=== PATIENT | male | born 2000 | race Caucasian/White ===

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

== ENCOUNTER 2021-05-17 09:07 | Observation (INO) | payer BC, OTHER ==
[2021-05-17] MEDS ORDERED: SODIUM CHLORIDE 0.9% 500 ML 500 ML IV STA (10:26)
[2021-05-17 10:54] LABS: Basophils % (A) 1 %; Eosinophils # (A) 0.2 k/uL (0-0.7); Eosinophils % (A) 5 %; HCT 43.4 % (39.0-53.0); HGB 15.3 gm/dL (13.0-17.5); Lymphocytes # (A) 1.3 k/uL (1.0-4.8); Lymphocytes % (A) 29 %; MCH 31.2 pg (25.0-35.0); MCHC 35.3 g/dL (31.0-37.0); MCV 88.5 fL (80.0-100.0); Mean Platelet Volume 8.1; Monocytes # (A) 0.7 k/uL (0-1.0); Monocytes % (A) 16 %; Neutrophils # (A) 2.1 k/uL (1.3-7.7); Neutrophils % (A) 47 %; Platelet Count 257 k/uL (150-450); RBC 4.91 m/uL (4.30-5.90); RDW 11.8 % (11.5-15.5); WBC 4.6 k/uL (4.0-11.0)
--- NOTE | 2021-05-17 11:03 | ED ---
Abdominal Pain HPI - General Chief Complaint: Abdominal Pain Stated Complaint: possible appendicitis Time Seen by Provider: 05/17/21 10:30 Source: patient, family, RN notes reviewed Mode of arrival: ambulatory Limitations: no limitations - History of Present Illness Initial Comments: Patient is a 21-year-old male presenting to the emergency Department with complaints of right lower quadrant pain worsening over the past 2 days. Patient does have history of Crohn's disease however this does not feel like his normal flareups. He states the pain started mostly in the middle of his abdomen but now has relocated to the right lower quadrant. His pain was a 10/10 when it first started 2 days ago, the pain has seemed to improve very slightly over the past 2 days, he did have some nausea and vomiting, and episode of diarrhea as well. Patient had pain during the car rides over the last 24 hours, he also has pain when he lifts up his right leg. They have concerns for appendicitis. He denies history of abdominal surgeries, no dysuria. Currently his pain is a 4/10. He He's had no fevers and is aware of. No chest pain or shortness of breath, no signs of congestion. There are no further complaints today. His vital signs are stable upon arrival. - Related Data Home Medications Medication Instructions Recorded Confirmed inFLIXimab [Remicade] 300 mg IVPB Q56D 03/02/18 05/17/21 Allergies Allergy/AdvReac Type Severity Reaction Status Date / Time No Known Allergies Allergy Verified 05/17/21 09:38 Review of Systems ROS Statement: Those systems with pertinent positive or pertinent negative responses have been documented in the HPI. ROS Other: All systems not noted in ROS Statement are negative. Past Medical History Past Medical History: Seizure Disorder Additional Past Medical History / Comment(s): chrons, pt had epilepsy as child History of Any Multi-Drug Resistant Organisms: None Reported Past Surgical History: No Surgical Hx Reported Additional Past Surgical History / Comment(s): colonoscopy, nasal, EGD with biopsy Past Psychological History: No Psychological Hx Reported Smoking Status: Never smoker Past Alcohol Use History: None Reported Past Drug Use History: None Reported General Exam - General Exam Comments Initial Comments: GENERAL: Patient is well-developed and well-nourished. Patient is nontoxic and in no acute distress. HEAD: Atraumatic, normocephalic. EYES: Pupils equal round and reactive to light, extraocular movements intact, sclera anicteric, conjunctiva are normal. Eyelids were unremarkable. ENT: Oropharynx clear without exudates. Moist mucous membranes. NECK: Normal range of motion, supple without lymphadenopathy or JVD. LUNGS: Unlabored respirations. Breath sounds clear to auscultation bilaterally and equal. No wheezes rales or rhonchi. HEART: Regular rate and rhythm without murmurs, rubs or gallops. ABDOMEN: Soft, tender to palpation of the right lower quadrant with positive guarding and rebound. normoactive bowel sounds. No masses appreciated. MUSCULOSKELETAL: Normal extremities with adequate strength and normal range of motion, no pitting or edema. No clubbing or cyanosis. NEUROLOGICAL: Patient is alert and oriented x 3. SKIN: Warm, Dry, normal turgor, no rashes or lesions noted. Limitations: no limitations Course Vital Signs 05/17/21 05/17/21 09:38 13:18 Temperature 98.2 F 98.2 F Pulse Rate 66 71 Respiratory 18 18 Rate Blood Pressure 126/82 121/60 O2 Sat by Pulse 99 100 Oximetry Medical Decision Making - Medical Decision Making Patient is a 21-year-old male with history of Crohn's, presenting with right lower quadrant pain over the past 2 days. He's had some nausea and vomiting as well, no appetite. His vitals are stable here. He is quite tender the right lo wer quadrant with positive guarding and rebound, but at rest pain is 4/10, he declined any pain meds. Labs are unremarkable, normal white count at this time. Computed tomography scan shows slight prominence of the appendix with minimal periappendiceal inflammatory change, consistent with early acute appendicitis. I spoke with Dr. Quesada who agrees to see this patient for possible Chrons flare- up. Patient's mother is requesting Dr. Ely as her friend works with him, does not want Dr. Enrique for surgical consult. Dr. Ely is unavailable today, willing to consult on the patient tomorrow morning, but understanding the risk involved with waiting, patient is agreeable to this. Patient will be a medical admit with consult to Dr. Quesada and Dr. Ely. Patient was given one dose of Zosyn. He has been refusing pain medication as he is stable. Patient will be NPO after midnight. Case discussed with Dr. Munoz. - Lab Data Result diagrams: 05/17/21 10:40 05/17/21 10:40 Lab Results 05/17/21 05/17/21 05/17/21 Range/Units 10:40 10:40 10:40 WBC 4.6 (4.0-11.0) k/uL RBC 4.91 (4.30-5.90) m/uL Hgb 15.3 (13.0-17.5) gm/dL Hct 43.4 (39.0-53.0) % MCV 88.5 (80.0-100.0) fL MCH 31.2 (25.0-35.0) pg MCHC 35.3 (31.0-37.0) g/dL RDW 11.8 (11.5-15.5) % Plt Count 257 (150-450) k/uL MPV 8.1 Neutrophils % 47 % Lymphocytes % 29 % Monocytes % 16 % Eosinophils % 5 % Basophils % 1 % Neutrophils # 2.1 (1.3-7.7) k/uL Lymphocytes # 1.3 (1.0-4.8) k/uL Monocytes # 0.7 (0-1.0) k/uL Eosinophils # 0.2 (0-0.7) k/uL Basophils # 0.0 (0-0.2) k/uL Sodium 137 (137-145) mmol/L Potassium 4.4 (3.5-5.1) mmol/L Chloride 101 (98-107) mmol/L Carbon Dioxide 27 (22-30) mmol/L Anion Gap 9 mmol/L BUN 16 (9-20) mg/dL Creatinine 1.10 (0.66-1.25) mg/dL Est GFR (CKD-EPI)AfAm >90 (>60 ml/min/1.73 sqM) Est GFR (CKD-EPI)NonAf >90 (>60 ml/min/1.73 sqM) Glucose 93 (74-99) mg/dL Plasma Lactic Acid Mikhail (0.7-2.0) mmol/L Calcium 9.6 (8.4-10.2) mg/dL Total Bilirubin 1.1 (0.2-1.3) mg/dL AST 28 (17-59) U/L ALT 17 (4-49) U/L Alkaline Phosphatase 101 (38-126) U/L C-Reactive Protein (<1.0) mg/dL Total Protein 8.0 (6.3-8.2) g/dL Albumin 4.5 (3.5-5.0) g/dL Amylase 66 (30-110) U/L Lipase 26 (23-300) U/L Urine Color Light Yellow Urine Appearance Clear (Clear) Urine pH 6.5 (5.0-8.0) Ur Specific Metz 1.014 (1.001-1.035) Urine Protein Negative (Negative) Urine Glucose (UA) Negative (Negative) Urine Ketones Negative (Negative) Urine Blood Negative (Negative) Urine Nitrite Negative (Negative) Urine Bilirubin Negative (Negative) Urine Urobilinogen <2.0 (<2.0) mg/dL Ur Leukocyte Esterase Negative (Negative) Coronavirus (PCR) (Not Detectd) 05/17/21 05/17/21 05/17/21 Range/Units 10:40 10:40 13:36 WBC (4.0-11.0) k/uL RBC (4.30-5.90) m/uL Hgb (13.0-17.5) gm/dL Hct (39.0-53.0) % MCV (80.0-100.0) fL MCH (25.0-35.0) pg MCHC (31.0-37.0) g/dL RDW (11.5-15.5) % Plt Count (150-450) k/uL MPV Neutrophils % % Lymphocytes % % Monocytes % % Eosinophils % % Basophils % % Neutrophils # (1.3-7.7) k/uL Lymphocytes # (1.0-4.8) k/uL Monocytes # (0-1.0) k/uL Eosinophils # (0-0.7) k/uL Basophils # (0-0.2) k/uL Sodium (137-145) mmol/L Potassium (3.5-5.1) mmol/L Chloride (98-107) mmol/L Carbon Dioxide (22-30) mmol/L Anion Gap mmol/L BUN (9-20) mg/dL Creatinine (0.66-1.25) mg/dL Est GFR (CKD-EPI)AfAm (>60 ml/min/1.73 sqM) Est GFR (CKD-EPI)NonAf (>60 ml/min/1.73 sqM) Glucose (74-99) mg/dL Plasma Lactic Acid Mikhail 0.9 (0.7-2.0) mmol/L Calcium (8.4-10.2) mg/dL Total Bilirubin (0.2-1.3) mg/dL AST (17-59) U/L ALT (4-49) U/L Alkaline Phosphatase (38-126) U/L C-Reactive Protein 2.2 H (<1.0) mg/dL Total Protein (6.3-8.2) g/dL Albumin (3.5-5.0) g/dL Amylase (30-110) U/L Lipase (23-300) U/L Urine Color Urine Appearance (Clear) Urine pH (5.0-8.0) Ur Specific Metz (1.001-1.035) Urine Protein (Negative) Urine Glucose (UA) (Negative) Urine Ketones (Negative) Urine Blood (Negative) Urine Nitrite (Negative) Urine Bilirubin (Negative) Urine Urobilinogen (<2.0) mg/dL Ur Leukocyte Esterase (Negative) Coronavirus (PCR) Detected A (Not Detectd) 05/17/21 Range/Units 15:40 WBC (4.0-11.0) k/uL RBC (4.30-5.90) m/uL Hgb (13.0-17.5) gm/dL Hct (39.0-53.0) % MCV (80.0-100.0) fL MCH (25.0-35.0) pg MCHC (31.0-37.0) g/dL RDW (11.5-15.5) % Plt Count (150-450) k/uL MPV Neutrophils % % Lymphocytes % % Monocytes % % Eosinophils % % Basophils % % Neutrophils # (1.3-7.7) k/uL Lymphocytes # (1.0-4.8) k/uL Monocytes # (0-1.0) k/uL Eosinophils # (0-0.7) k/uL Basophils # (0-0.2) k/uL Sodium (137-145) mmol/L Potassium (3.5-5.1) mmol/L Chloride (98-107) mmol/L Carbon Dioxide (22-30) mmol/L Anion Gap mmol/L BUN (9-20) mg/dL Creatinine (0.66-1.25) mg/dL Est GFR (CKD-EPI)AfAm (>60 ml/min/1.73 sqM) Est GFR (CKD-EPI)NonAf (>60 ml/min/1.73 sqM) Glucose (74-99) mg/dL Plasma Lactic Acid Mikhail (0.7-2.0) mmol/L Calcium (8.4-10.2) mg/dL Total Bilirubin (0.2-1.3) mg/dL AST (17-59) U/L ALT (4-49) U/L Alkaline Phosphatase (38-126) U/L C-Reactive Protein (<1.0) mg/dL Total Protein (6.3-8.2) g/dL Albumin (3.5-5.0) g/dL Amylase (30-110) U/L Lipase (23-300) U/L Urine Color Urine Appearance (Clear) Urine pH (5.0-8.0) Ur Specific Metz (1.001-1.035) Urine Protein (Negative) Urine Glucose (UA) (Negative) Urine Ketones (Negative) Urine Blood (Negative) Urine Nitrite (Negative) Urine Bilirubin (Negative) Urine Urobilinogen (<2.0) mg/dL Ur Leukocyte Esterase (Negative) Coronavirus (PCR) Detected A (Not Detectd) Disposition Clinical Impression: Appendicitis, Lower abdominal pain, Crohn's disease Disposition: ADMITTED IP TO THIS [facility] Condition: Stable Referrals: Mariam Herrera MD [Primary Care Provider] - 1-2 days Decision Date: 05/17/21 Decision Time: 14:09
[2021-05-17 11:18] LABS: ALT 17 U/L (4-49); AST 28 U/L (17-59); African American GFR (CKD) >90 (>60 ml/min/1.73 sqM); Albumin 4.5 g/dL (3.5-5.0); Alkaline Phosphatase 101 U/L (38-126); Amylase 66 U/L (30-110); Anion Gap 9 mmol/L; Blood Urea Nitrogen 16 mg/dL (9-20); Calcium 9.6 mg/dL (8.4-10.2); Carbon Dioxide 27 mmol/L (22-30); Chloride 101 mmol/L (98-107); Glucose 93 mg/dL (74-99); Lipase 26 U/L (23-300); Non-African American GFR(CKD) >90 (>60 ml/min/1.73 sqM); Potassium 4.4 mmol/L (3.5-5.1); Sodium 137 mmol/L (137-145); Total Bilirubin 1.1 mg/dL (0.2-1.3)
[2021-05-17 11:21] LABS: Appearance,Urine Clear (Clear); Bilirubin,Urine Negative (Negative); Blood,Urine Negative (Negative); Color,Urine Light Yellow; Glucose,Urine (UA) Negative (Negative); Ketones,Urine Negative (Negative); Leukocyte Esterase,Urine Negative (Negative); Nitrite,Urine Negative (Negative); PH, Urine 6.5 (5.0-8.0); Protein,Urine Negative (Negative); Specific Gravity,Urine 1.014 (1.001-1.035); Urobilinogen,Urine <2.0 mg/dL (<2.0)
--- NOTE | 2021-05-17 11:45 | CT ---
EXAMINATION TYPE: CT abdomen pelvis w con DATE OF EXAM: 05/17/2021 COMPARISON: None INDICATION: RLQ pain, nausea, vomiting, history of crohns DLP: 654.3 mGycm, Automated exposure control for dose reduction was used. CONTRAST: 100 mL of Isovue 300. Study performed without Oral Contrast TECHNIQUE: Axial images were obtained from above the diaphragm to the pubic rami in the axial plane a t 5 mm thick sections. Reconstructed images are reviewed on the computer in the coronal plane. FINDINGS: Limited CT sections are obtained the lung bases. The lung bases are clear. CT ABDOMEN: Liver: Normal Spleen: Normal Pancreas: Normal Adrenal glands: The adrenal glands are normal. Gallbladder: Normal Kidneys: No masses are evident. No hydronephrosis is present. No cysts are present. Delayed images were obtained to the kidneys which appear unremarkable. Aorta: Normal Inferior vena cava: Normal. CT PELVIS: Some mild wall thickening of the hepatic flexure may be present. Inflammatory changes are not identif ied. The study is without oral contrast limiting evaluation. Appendix: The appendix is difficult to identify. What appears to be the appendix is slightly prominen t measuring 0.8 cm. Early appendicitis should be considered. Clinical management is recommended. Repo rt was called case discussed with PABLO Arcos by Dr. Brandon by telephone 1142 hours 05/17/2021. Urinary bladder: Normal. Genitourinary structures: Prostate appears normal Osseous structures: No suspicious lytic or sclerotic lesions. IMPRESSIONS: 1. Slight prominence of the appendix with some minimal periappendiceal inflammatory changes. Finding s can be compatible with early acute appendicitis. Clinical correlation and management is recommended . 2. Some mild colitis at the hepatic flexure should be considered.
[2021-05-17] MEDS ORDERED: PIPERACILLIN-TAZOBACTAM 3.375 GM in SODIUM CHLORIDE 0.9% 100 ML IVPB STA (13:11)
[2021-05-17] MEDS ORDERED: MORPHINE SULFATE 4 MG/ML SYRINGE IV PRN ×2 (14:07→15:40)
[2021-05-17] MEDS ORDERED: NALOXONE 0.4 MG/ML 1 ML VIAL IV PRN ×2 (14:07→15:40)
[2021-05-17] MEDS ORDERED: KETOROLAC 15 MG/ML 1 ML VIAL IVP PRN ×2 (14:07→15:40)
[2021-05-17] MEDS ORDERED: ONDANSETRON 4 MG/2 ML VIAL IVP PRN ×2 (14:07→15:40)
[2021-05-17] MEDS ORDERED: SODIUM CHLORIDE 0.9% 1,000 ML IV SCH (14:15)
[2021-05-17] MEDS ORDERED: KETOROLAC 30 MG/ML 1 ML VIAL IVP PRN (14:15)
[2021-05-17] MEDS ORDERED: ACETAMINOPHEN TAB 325 MG TAB PO PRN (15:40)
[2021-05-17] MEDS ORDERED: IBUPROFEN 400 MG TAB PO PRN (15:40)
--- NOTE | 2021-05-17 16:11 | P.HPIM ---
History of Present Illness 21-year-old pleasant male with known history of Crohn's disease diagnosed when he was 13 years old on infliximab came in with the complaints of right lower quadrant abdominal pain has been going on since Monday patient denied any f ever chills denied any significant diarrhea patient had 1 episode of diarrhea without any blood in the stools was having nausea which improved at this time. Patient is able to tolerate regular diet. Patient had a CT of the abdomen which was read as a very appendicular inflammation and early appendicitis cannot be ruled out because of which neurosurgery was consulted and gastric body was consulted and patient is being admitted to my service at this time. REVIEW OF SYSTEMS: CONSTITUTIONAL: No fever, no malaise, no fatigue. HEENT: No recent visual problems or hearing problems. Denied any sore throat. CARDIOVASCULAR: No chest pain, orthopnea, PND, no palpitations, no syncope. PULMONARY: No shortness of breath, no cough, no hemoptysis. GASTROINTESTINAL: As mentioned in HPI NEUROLOGICAL: No headaches, no weakness, no numbness. HEMATOLOGICAL: Denies any bleeding or petechiae. GENITOURINARY: Denies any burning micturition, frequency, or urgency. MUSCULOSKELETAL/RHEUMATOLOGICAL: Denies any joint pain, swelling, or any muscle pain. ENDOCRINE: Denies any polyuria or polydipsia. The rest of the 14-point review of systems is negative. PHYSICAL EXAMINATION: GENERAL: The patient is alert and oriented x3, not in any acute distress. Well developed, well nourished. HEENT: Pupils are round and equally reacting to light. EOMI. No scleral icterus. No conjunctival pallor. Normocephalic, atraumatic. No pharyngeal erythema. No thyromegaly. CARDIOVASCULAR: S1 and S2 present. No murmurs, rubs, or gallops. PULMONARY: Chest is clear to auscultation, no wheezing or crackles. ABDOMEN: Soft, nontender, nondistended, normoactive bowel sounds. No palpable organomegaly. MUSCULOSKELETAL: No joint swelling or deformity. EXTREMITIES: No cyanosis, clubbing, or pedal edema. NEUROLOGICAL: Gross neurological examination did not reveal any focal deficits. SKIN: No rashes. Assessment and plan -Right lower quadrant abdominal pain: Secondary to Crohn's exacerbation low possibility of appendicitis general surgery will evaluate the patient patient will be started on low-dose steroids. Patient was given a dose of antibiotic which I'm not continuing at this time as there is low possibility of appendicitis. DVT prophylaxis: Early ambulation Past Medical History Past Medical History: Seizure Disorder Additional Past Medical History / Comment(s): chrons, pt had epilepsy as child History of Any Multi-Drug Resistant Organisms: None Reported Past Surgical History: No Surgical Hx Reported Additional Past Surgical History / Comment(s): colonoscopy, nasal, EGD with biopsy Past Psychological History: No Psychological Hx Reported Smoking Status: Never smoker Past Alcohol Use History: None Reported Past Drug Use History: None Reported Medications and Allergies Home Medications Medication Instructions Recorded Confirmed Type inFLIXimab [Remicade] 300 mg IVPB Q56D 03/02/18 05/17/21 History Allergies Allergy/AdvReac Type Severity Reaction Status Date / Time No Known Allergies Allergy Verified 05/17/21 09:38 Physical Exam Vitals: Vital Signs Temp Pulse Resp BP Pulse Ox 05/17/21 13:18 98.2 F 71 18 121/60 100 05/17/21 09:38 98.2 F 66 18 126/82 99 Intake and Output 05/17/21 05/17/21 05/17/21 06:59 14:59 22:59 Other: Weight 72.575 kg Results CBC & Chem 7: 05/17/21 10:40 05/17/21 10:40 Labs: Abnormal Lab Results - Last 24 Hours (Table) 05/17/21 05/17/21 Range/Units 13:36 15:40 Coronavirus (PCR) Detected A Detected A (Not Detectd)
--- NOTE | 2021-05-17 17:01 | P.CONS ---
History of Present Illness - Reason for Consult Consult date: 05/17/21 right lower quadrant pain, history of Crohn's Requesting physician: Chaka Watters - Chief Complaint Right lower quadrant pain - History of Present Illness This is a 21 year old white male who presented to the emergency room with complaints of right lower quadrant abdominal pain. The patient states abdominal pain and nausea began on Monday. The pain continued but yesterday seemed to worsen and increased with walking. He states the pain has improved at this luis e. Initially he states it was a 10 out of 10 and now reports at a 4 out of 10.He's had no bowel movement and no blood in the stool over the last couple days.he has a past medical history significant for Crohn's colitis diagnosed at 13 years old. He was initially treated through [facility] and has recently transitioned to care with Dr. Quesada. He is been on Remicade. He has not had any recent flareups. Denies any fever or chills. admission WBC 4.6 hemoglobin 15 platelet count 257,000. Electrolytes and LFTs unremarkable. Collins virus PCR positive.he underwent a CT of the abdomen and pelvis that shows slight prominence of the appendix with some minimal periappendiceal inflammatory changes. Findings can be compatible with early acute appendicitis. Clinical correlation and management is recommended. Some mild colitis at the hepatic flexure should be considered. Review of Systems REVIEW OF SYSTEMS: CARDIOPULMONARY: No chest pain or shortness of breath. Gastrointestinal: Right lower quadrant pain. Nausea, no vomiting. No hematemesis, coffee-ground emesis. No rectal bleeding, or melena. No excessive diarrhea. GENITOURINARY: No dysuria or hematuria. MUSCULOSKELETAL: Reports normal range of motion., Joint pain. SKIN: No rashes. No jaundice. ENDOCRINE: No chills, fevers. No excessive weight gain or loss. No polydipsia or polyuria. PSYCHIATRIC: Unremarkable. NEUROLOGY: No change in mental status. Denies dizziness, headache. ENT: Vision unremarkable. CONSTITUTIONAL: No recent weight loss. No fever, chills, night sweats. Past Medical History Past Medical History: Seizure Disorder Additional Past Medical History / Comment(s): chrons, pt had epilepsy as child History of Any Multi-Drug Resistant Organisms: None Reported Past Surgical History: No Surgical Hx Reported Additional Past Surgical History / Comment(s): colonoscopy, nasal, EGD with biopsy Past Psychological History: No Psychological Hx Reported Smoking Status: Never smoker Past Alcohol Use History: None Reported Past Drug Use History: None Reported Medications and Allergies Home Medications Medication Instructions Recorded Confirmed Type inFLIXimab [Remicade] 300 mg IVPB Q56D 03/02/18 05/17/21 History Allergies Allergy/AdvReac Type Severity Reaction Status Date / Time No Known Allergies Allergy Verified 05/17/21 09:38 Physical Exam Vitals: Vital Signs Temp Pulse Resp BP Pulse Ox 05/17/21 13:18 98.2 F 71 18 121/60 100 05/17/21 09:38 98.2 F 66 18 126/82 99 Intake and Output 05/17/21 05/17/21 05/17/21 06:59 14:59 22:59 Other: Weight 72.575 kg General appearance: The patient is alert, oriented, appears in no acute distress. HET: Head is normocephalic and atraumatic. Conjunctiva pink. Sclera anicteric. Neck: Supple without lymphadenopathy. Abdomen: Soft, mild right lower quadrant tenderness, nondistended with bowel sounds. No guarding or rigidity. Extremities: Normal skin color and turgor. No pedal edema Skin: No rashes, no jaundice Neurological: No focal deficits. Alert and oriented x3. Results CBC & Chem 7: 05/17/21 10:40 05/17/21 10:40 Labs: Abnormal Lab Results - Last 24 Hours (Table) 05/17/21 05/17/21 Range/Units 13:36 15:40 Coronavirus (PCR) Detected A Detected A (Not Detectd) CT scan - abdomen: report reviewed (CT of the abdomen and pelvis that shows slight prominence of the appendix with some minimal periappendiceal inflammatory changes. Findings can be compatible with early acute appendicitis. Clinical correlation and management is recommended. Some mild colitis at the hepatic flexure should be consid) Assessment and Plan (1) Crohn's disease Narrative/Plan: 21-year-old male known to Dr. Quesada for history of Crohn's colitis diagnosed at age 13. Presented to the emergency department with right lower quadrant pain that began 2 days ago which states was severe however has been improving over the last couple days. He did have some associated nausea with the abdominal pain. No fevers or chills. Patient gets remicade infusions, and has been well controlled. He denies any blood in his stool. No increase in diarrhea. no leukocytosis. CT of abdomen and pelvis shows slight prominence of the appendix with some minimal periappendiceal inflammatory changes. Findings can be compatible with early acute appendicitis. Clinical correlation and management is recommended. Some mild colitis at the hepatic flexure should be considered. Possible dealing with a mild Crohn's flare. will start low dose IV steroids and order CRP and SeD rate. Current Visit: Yes Status: Acute Code(s): K50.90 - CROHN'S DISEASE, UNSPECIFIED, WITHOUT COMPLICATIONS SNOMED Code(s): 20632215 (2) Right lower quadrant abdominal pain Narrative/Plan: Gen. surgery on consult Current Visit: Yes Status: Acute Code(s): R10.31 - RIGHT LOWER QUADRANT PAIN SNOMED Code(s): 154781376 Plan: 1. Continue symptomatic and supportive care 2. Agree with general surgery consult 3. Clear liquid diet 4. Sed rate and CRP ordered 5. Solumedrol 20 mg IV Q8 hours Thank you for this consultation, we will continue to follow. Dr. Sonia Quesada I agree with the dictator's note, documented as a scribe by Rosemarie Coley.
[2021-05-17] MEDS: methylPREDNISolone SOD SUCCI 40 MG/ML 1 ML VIAL IV SCH ×2 (19:21→23:32)
[2021-05-18] MEDS: methylPREDNISolone SOD SUCCI 40 MG/ML 1 ML VIAL IV SCH ×2 (08:07→15:46)
[2021-05-18] MEDS ORDERED: LACTATED RINGERS 1,000 ML IV SCH (09:00)
--- NOTE | 2021-05-18 11:10 | P.GSCN ---
<Capri Hale - Last Filed: 05/18/21 11:02> History of Present Illness Consult date: 05/18/21 History of present illness: CHIEF COMPLAINT: Abdominal pain HISTORY OF PRESENT ILLNESS: This is a 21-year-old male who presented to the hospital with complaints of right lower quadrant pain that started on Monday. He reports having nausea and had one self-induced episode of vomiting. Which did not relieve his symptoms. Patient reports that his pain continued to worsen and had rated it a 10 out of 10. He has a known past medical history of Crohn's disease diagnosed at 13 years old. Patient reports that his pain feels different than his Crohn's flareup. Patient reports that in a couple a days since his last bowel movement. And he's had no blood in his stools. He denies any fever, chills or sweats. He had a computed tomography scan of the abdomen and pelvis demonstrating slight prominence of the appendix with some minimal periappendiceal inflammatory changes. Findings can be compatible with early acute appendicitis. Some mild colitis at the hepatic flexure should be conside red. Surgical service consulted for possible appendicitis. Patient denies any prior abdominal surgeries. Patient seen by GI service he is currently on IV steroids for possible Crohn's exacerbation. PAST MEDICAL HISTORY: See list. PAST SURGICAL HISTORY: See list. MEDICATIONS: See list. ALLERGIES: See list. SOCIAL HISTORY: No illicit drug use. REVIEW OF SYSTEMS: CONSTITUTIONAL: Denies fever or chills. HEENT: Denies blurred vision, vision changes, or eye pain. Denies hemoptysis CARDIOVASCULAR: Denies chest pain or pressure. RESPIRATORY: No shortness of breath. GASTROINTESTINAL: See HPI for pertinent findings HEMATOLOGIC: Denies bleeding disorders. GENITOURINARY: Denies any blood in urine or increased urinary frequency. SKIN: Denies pruitis. Denies rash. PHYSICAL EXAM: VITAL SIGNS: Reviewed GENERAL: Well-developed in no acute distress. HEENT: No sclera icterus. Extraocular movements grossly intact. Moist buccal mucosa. Head is atraumatic, normocephalic. No nasal drainage. ABDOMEN: Soft. Nondistended. Right lower quadrant tenderness with palpation NEUROLOGIC: Alert and oriented. Cranial nerves II through XII grossly intact. LABORATORY DATA: WBC 4.6 Hgb 15.3 platelets 257 Sed rate 5 Sodium 137 potassium 4.4 creatinine 1.10 lactic 0.9 CRP 2.2 LFTs and lipase normal Urinalysis negative COVID-19 detected IMAGING: computed tomography scan of the abdomen and pelvis demonstrating slight prominence of the appendix with some minimal periappendiceal inflammatory changes. Findings can be compatible with early acute appendicitis. Some mild colitis at the hepatic flexure should be considered. ASSESSMENT: 1. Acute appendicitis 2. COVID-19 positive 3. History of Crohn's disease PLAN: -Patient scheduled for laparoscopic , possible open appendectomy today with Dr. Ely -Keep patient nothing by mouth -Continue IV antibiotics -Continue IV fluids -Continue pain medication as needed Thank you for this consultation Physician Piano Sounding Board Matcher note has been reviewed by physician. Signing provider agrees with the documented findings, assessment, and plan of care. Past Medical History Past Medical History: Seizure Disorder Additional Past Medical History / Comment(s): chrons, pt had epilepsy as child History of Any Multi-Drug Resistant Organisms: None Reported Past Surgical History: No Surgical Hx Reported Additional Past Surgical History / Comment(s): colonoscopy, nasal, EGD with biopsy Past Psychological History: No Psychological Hx Reported Smoking Status: Never smoker Past Alcohol Use History: None Reported Past Drug Use History: None Reported - Past Family History Father Additional Family Medical History / Comment(s): colitis Brother(s) Family Medical History: Cancer Medications and Allergies Home Medications Medication Instructions Recorded Confirmed Type inFLIXimab [Remicade] 300 mg IVPB Q56D 03/02/18 05/17/21 History Allergies Allergy/AdvReac Type Severity Reaction Status Date / Time No Known Allergies Allergy Verified 05/17/21 09:38 Surgical - Exam Vital Signs Temp Pulse Resp BP Pulse Ox 98.2 F 66 18 126/82 99 05/17/21 09:38 05/17/21 09:38 05/17/21 09:38 05/17/21 09:38 05/17/21 09:38 Results - Labs 05/17/21 10:40 05/17/21 10:40 Abnormal Lab Results - Last 24 Hours (Table) 05/17/21 05/17/21 05/17/21 Range/Units 10:40 13:36 15:40 C-Reactive Protein 2.2 H (<1.0) mg/dL Coronavirus (PCR) Detected A Detected A (Not Detectd) Diabetes panel 05/17/21 Range/Units 10:40 Sodium 137 (137-145) mmol/L Potassium 4.4 (3.5-5.1) mmol/L Chloride 101 (98-107) mmol/L Carbon Dioxide 27 (22-30) mmol/L BUN 16 (9-20) mg/dL Creatinine 1.10 (0.66-1.25) mg/dL Glucose 93 (74-99) mg/dL Calcium 9.6 (8.4-10.2) mg/dL AST 28 (17-59) U/L ALT 17 (4-49) U/L Alkaline Phosphatase 101 (38-126) U/L Total Protein 8.0 (6.3-8.2) g/dL Albumin 4.5 (3.5-5.0) g/dL Calcium panel 05/17/21 Range/Units 10:40 Calcium 9.6 (8.4-10.2) mg/dL Albumin 4.5 (3.5-5.0) g/dL Pituitary panel 05/17/21 Range/Units 10:40 Sodium 137 (137-145) mmol/L Potassium 4.4 (3.5-5.1) mmol/L Chloride 101 (98-107) mmol/L Carbon Dioxide 27 (22-30) mmol/L BUN 16 (9-20) mg/dL Creatinine 1.10 (0.66-1.25) mg/dL Glucose 93 (74-99) mg/dL Calcium 9.6 (8.4-10.2) mg/dL Adrenal panel 05/17/21 Range/Units 10:40 Sodium 137 (137-145) mmol/L Potassium 4.4 (3.5-5.1) mmol/L Chloride 101 (98-107) mmol/L Carbon Dioxide 27 (22-30) mmol/L BUN 16 (9-20) mg/dL Creatinine 1.10 (0.66-1.25) mg/dL Glucose 93 (74-99) mg/dL Calcium 9.6 (8.4-10.2) mg/dL Total Bilirubin 1.1 (0.2-1.3) mg/dL AST 28 (17-59) U/L ALT 17 (4-49) U/L Alkaline Phosphatase 101 (38-126) U/L Total Protein 8.0 (6.3-8.2) g/dL Albumin 4.5 (3.5-5.0) g/dL <Konstantin Ely - Last Filed: 05/18/21 12:19> History of Present Illness History of present illness: As above. Patient's history, abdominal examination, and CAT scan results suggest appendicitis. Remains tender in the right lower quadrant despite antibiotics overnight. Options discussed in detail with the patient and his mother by phone. We'll proceed with laparoscopic, possible open appendectomy at this time. Risks of bleeding, infection, abscess, hernia, fistula, bladder bowel ureteral injury, conversion to an open procedure discussed. He understands and wishes to proceed. Surgical - Exam Vital Signs Temp Pulse Resp BP Pulse Ox 98.2 F 66 18 126/82 99 05/17/21 09:38 05/17/21 09:38 05/17/21 09:38 05/17/21 09:38 05/17/21 09:38 Results - Labs 05/17/21 10:40 05/17/21 10:40 Abnormal Lab Results - Last 24 Hours (Table) 05/17/21 05/17/21 05/17/21 Range/Units 10:40 13:36 15:40 C-Reactive Protein 2.2 H (<1.0) mg/dL Coronavirus (PCR) Detected A Detected A (Not Detectd)
[2021-05-18] MEDS: SODIUM CHLORIDE 0.9% 1,000 ML IV SCH ×2 (12:01→19:54)
[2021-05-18] MEDS: PIPERACILLIN-TAZOBACTAM 3.375 GM in SODIUM CHLORIDE 0.9% 100 ML IVPB SCH ×2 (12:02→19:45)
[2021-05-18] MEDS ORDERED: MIDAZOLAM 2 MG/2 ML VIAL ONE (14:05)
[2021-05-18] MEDS ORDERED: NEOSTIGMINE 1 MG/ML 10 ML VIAL ONE (14:05)
[2021-05-18] MEDS ORDERED: .fentaNYL (PF) 50 MCG/ML 2 ML AMP ONE (14:05)
[2021-05-18] MEDS ORDERED: SUCCINYLCHOLINE CHLORIDE 100 MG/5 ML SYR IV ONE (14:05)
[2021-05-18] MEDS ORDERED: PROPOFOL 10 MG/ML 20 ML VIAL IV ONE (14:05)
[2021-05-18] MEDS ORDERED: GLYCOPYRROLATE 0.2 MG/ML 2 ML VIAL ONE (14:05)
[2021-05-18] MEDS ORDERED: LIDOCAINE 1% INJ 10MG/ML (20 ML MDV) ONE (14:05)
[2021-05-18] MEDS ORDERED: IV FLUID CONTINUATION 1,000 ML IV ONE (14:14)
[2021-05-18] MEDS ORDERED: BUPIVACAIN-EPI 0.25%-1:200,000 30 ML VIAL SQ ONE ×2 (14:32)
[2021-05-18] MEDS ORDERED: LACTATED RINGERS 1,000 ML IV ONE (14:46)
[2021-05-18] MEDS ORDERED: ACETAMINOPHEN TAB 325 MG TAB PO PRN (15:15)
--- NOTE | 2021-05-18 15:18 | P.OP ---
Date of Procedure: 05/18/21 Procedure(s) Performed: PREOPERATIVE DIAGNOSIS: Acute appendicitis POSTOPERATIVE DIAGNOSIS: Same PROCEDURE: Laparoscopic appendectomy SURGEON: Solis EBL: 2 mL ANESTHESIA: General COMPLICATIONS: None OPERATIVE PROCEDURE: The patient was brought and placed on the operating table in the supine position. The patient was placed under general anesthesia. The abdomen was prepped and draped in the usual sterile fashion. A small vertical infraumbilical incision was made. The fascia was retracted anteriorly with Ángel forceps. The Veress needle was advanced into the peritoneal cavity. The saline drop test was normal. Insufflation took place to 15 mmHg. A 5 mm trocar was then placed. An additional 5 mm suprapubic trocar was placed under direct visualization as well as a 12 mm left lower quadrant trocar under direct visualization. The appendix was inspected. It was acutely inflamed. The mesoappendix was dissected. The base of the appendix was divided using a linear 45 mm intestinal stapler. The mesentery itself was divided using the LigaSure device. A small area of bleeding along the mesentery was controlled using a 12 mm clipper. The area was then irrigated. No further purulence or bleeding was seen. The appendix was brought out of the peritoneal cavity through the left lower quadrant trocar site with an Endo Catch bag. The patient's colon and small bowel appeared normal without inflammatory changes. The patient had what appeared to represent the start of a very small indirect inguinal hernia on the left-hand side. This measured less than 1 cm. The fascia at the 12 mm site was closed using a [id number] 0 Vicryl stitch. The skin at all 3 sites was closed using 4-0 Monocryl sutures. Skin glue was then applied. DISPOSITION: Stable to recovery room
[2021-05-18] MEDS: HYDROmorphone 0.5 MG/0.5 ML SYRINGE IVP PRN ×2 (15:45→19:52)
[2021-05-18] MEDS: KETOROLAC 30 MG/ML 1 ML VIAL IVP SCH ×2 (15:46→23:30)
--- NOTE | 2021-05-18 16:21 | P.PN ---
Subjective Progress Note Date: 05/18/21 Principal diagnosis: Abdominal pain, history of Crohn's disease 21-year-old male who presented to the emergency department yesterday with complaints of right lower quadrant abdominal pain. CT of the abdomen showed concern for possible appendicitis. He ahs a long standing history of Crohns colitis, on Remicade. Last dose 4 weeks ago. Gen. surgery was consulted and plan is for appendectomy today. Patient states no fevers or chills through the night. He denies any nausea or vomiting. He is having some right lower quadrant discomfort. No repeat labs today. CRP was mildly elevated at 2.2, sed rate was 5. Objective - Vital Signs Vital signs: Vital Signs Temp 98.4 F 05/18/21 15:38 Pulse 63 05/18/21 15:58 Resp 18 05/17/21 20:20 BP 129/81 05/18/21 15:58 Pulse Ox 98 05/18/21 15:38 Intake & Output 05/17/21 05/18/21 05/18/21 18:59 06:59 18:59 Intake Total 700 1000 Output Total 5 Balance 700 995 Weight 72.575 kg Intake: IV 1000 Intake, IV Titration 300 Amount Sodium Chloride 0.9% 1, 300 000 ml @ 75 mls/hr IV . [id number] [facility] Rx#:[id number] Oral 400 Output: Estimated Blood Loss 5 - Exam General appearance: The patient is alert, oriented, appears in no acute distress. HET: Head is normocephalic and atraumatic. Conjunctiva pink. Sclera anicteric. Neck: Supple without lymphadenopathy. Abdomen: Soft, mild right lower quadrant tenderness, nondistended with bowel sounds. No guarding or rigidity. Extremities: Normal skin color and turgor. No pedal edema Skin: No rashes, no jaundice Neurological: No focal deficits. Alert and oriented -3. - Labs CBC & Chem 7: 05/17/21 10:40 05/17/21 10:40 Labs: Abnormal Lab Results - Last 24 Hours (Table) 05/17/21 Range/Units 10:40 C-Reactive Protein 2.2 H (<1.0) mg/dL Assessment and Plan (1) Crohn's disease Narrative/Plan: 21-year-old male known to Dr. Quesada for history of Crohn's colitis diagnosed at age 13. Presented to the emergency department with right lower quadrant pain that began 2 days ago which states was severe however has been improving over the last couple days. He did have some associated nausea with the abdominal pain. No fevers or chills. Patient gets remicade infusions, and has been well controlled. He denies any blood in his stool. No increase in diarrhea. no leukocytosis. CT of abdomen and pelvis shows slight prominence of the appendix with some minimal periappendiceal inflammatory changes. Findings can be compatible with early acute appendicitis. Clinical correlation and management is recommended. Some mild colitis at the hepatic flexure should be considered. Possible dealing with a mild Crohn's flare. Continue low dose IV steroids for now, likely discontinue tomorrow Current Visit: Yes Status: Acute Code(s): K50.90 - CROHN'S DISEASE, UNS PECIFIED, WITHOUT COMPLICATIONS SNOMED Code(s): 75172268 (2) Right lower quadrant abdominal pain Narrative/Plan: Gen. surgery on consult, plan for appendectomy today Current Visit: Yes Status: Acute Code(s): R10.31 - RIGHT LOWER QUADRANT PAIN SNOMED Code(s): 741264769 (3) Appendicitis Current Visit: Yes Status: Acute Code(s): K37 - UNSPECIFIED APPENDICITIS SNOMED Code(s): 73269180 Plan: 1. Continue symptomatic and supportive care 2. NPO, then diet per recommendations from general surgery 3. Discontinue Solu-Medrol 4. Follow up outpatient with gastroenterology as previously scheduled Thank you for this consultation, we will continue to follow. Dr. Sonia Quesada I agree with the dictator's note, documented as a scribe by Rosemarie Coley.
[2021-05-18] MEDS: HYDROcodone/APAP 5-325MG 1 EACH TAB PO PRN (17:27)
[2021-05-18] MEDS: HEPARIN SODIUM,PORCINE/PF 5,000 UNIT/0.5 ML SYRINGE SQ SCH (19:45)
--- NOTE | 2021-05-18 22:43 | P.PN ---
Subjective Progress Note Date: 05/18/21 This is a 21 year old male who presents to the with complaints of Right lower quadrant pain with associated nausea and vomiting. 05/18/2021 Patient was evaluated this morning resting in bed. He denies any nausea vomiting or diarrhea. He has mild abdominal pain. He is pending for appendectomy today with Dr. Ely. Patient did test positive for COVID-19, twice. He currently denies any respiratory symptoms, denies cough, shortness breath, congestion he, he denies loss of taste or smell. Labs yesterday were unremarkable, we will repeat metabolic panel tomorrow. Vital signs are stable, afebrile, 97% on room air, blood pressure 121/66, 70 heart rate sinus rhythm. Most likely be able to discharge tomorrow if cleared by surgery. ROS Constitutional: Denied any fatigue denied any fever. Cardio vascular: denied any chest pain, palpitations Gastrointestinal denied any nausea vomiting, diarrhea currently, reports mild 3/10 RLQ abdominal pain, tender to palpation. Pulmonary: Denied any shortness of breath cough Neurologic denied any new focal deficits All inpatient medications were reviewed and appropriate changes in these medications as dictated in the interval history and assessment and plan. PHYSICAL EXAMINATION: GENERAL: The patient is alert and oriented x3, not in any acute distress. Well developed, well nourished. HEENT: Pupils are round and equally reacting to light. EOMI. No scleral icterus. No conjunctival pallor. Normocephalic, atraumatic. No pharyngeal erythema. No thyromegaly. CARDIOVASCULAR: S1 and S2 present. No murmurs, rubs, or gallops. PULMONARY: Chest is clear to auscultation, no wheezing or crackles. ABDOMEN: Soft, tender, nondistended, normoactive bowel sounds. No palpable organomegaly. MUSCULOSKELETAL: No joint swelling or deformity. EXTREMITIES: No cyanosis, clubbing, or pedal edema. NEUROLOGICAL: Gross neurological examination did not reveal any focal deficits. SKIN: No rashes. Assessment and plan Assessment -Right lower quadrant abdominal pain secondary probably to acute appendecitis -History of Chron's Disease, with exacerbation -History of epilepsy as a child DVT Prophylaxis: Heparin Subcu Plan Laproscopic Appendectomy today NPO diet for now Discharge home tomorrow Objective - Vital Signs Vital signs: Vital Signs Temp 98.1 F 05/18/21 02:00 Pulse 70 05/17/21 20:20 Resp 18 05/17/21 20:20 BP 121/66 05/18/21 02:00 Pulse Ox 97 05/18/21 02:00 Intake & Output 05/17/21 05/18/21 05/18/21 18:59 06:59 18:59 Intake Total 700 1000 Output Total 5 Balance 700 995 Weight 72.575 kg Intake: IV 1000 Intake, IV Titration 300 Amount Sodium Chloride 0.9% 1, 300 000 ml @ 75 mls/hr IV . [id number] [facility] Rx#:[id number] Oral 400 Output: Estimated Blood Loss 5 - Labs CBC & Chem 7: 05/17/21 10:40 05/17/21 10:40 Labs: Abnormal Lab Results - Last 24 Hours (Table) 05/17/21 05/17/21 Range/Units 10:40 15:40 C-Reactive Protein 2.2 H (<1.0) mg/dL Coronavirus (PCR) Detected A (Not Detectd) Assessment and Plan Time with Patient: Greater than 30
[2021-05-19] MEDS: HYDROcodone/APAP 5-325MG 1 EACH TAB PO PRN (01:39)
[2021-05-19] MEDS: PIPERACILLIN-TAZOBACTAM 3.375 GM in SODIUM CHLORIDE 0.9% 100 ML IVPB SCH (03:46)
[2021-05-19] MEDS: SODIUM CHLORIDE 0.9% 1,000 ML IV SCH (03:47)
[2021-05-19] MEDS: KETOROLAC 30 MG/ML 1 ML VIAL IVP SCH ×2 (05:16→12:50)
[2021-05-19] MEDS: HEPARIN SODIUM,PORCINE/PF 5,000 UNIT/0.5 ML SYRINGE SQ SCH (09:23)
--- NOTE | 2021-05-19 09:37 | P.PN ---
Subjective Progress Note Date: 05/19/21 Principal diagnosis: Abdominal pain, history of Crohn's disease 21-year-old male who presented to the emergency department with complaints of right lower quadrant abdominal pain. CT of the abdomen showed concern for possible appendicitis. He ahs a long standing history of Crohns colitis, on Remicade. Last dose 4 weeks ago. Yesterday he underwent an appendectomy. Today he is seen and examined. He states pain improved. Denies any nausea or vomiting, fever or chills. He is tolerating a clear liquid diet. Objective - Vital Signs Vital signs: Vital Signs Temp 97.6 F 05/19/21 08:52 Pulse 61 05/19/21 08:52 Resp 16 05/19/21 08:52 BP 129/73 05/19/21 08:52 Pulse Ox 99 05/19/21 08:52 Intake & Output 05/18/21 05/19/21 05/19/21 18:59 06:59 18:59 Intake Total 1000 200 Output Total 5 Balance 995 200 Intake: IV 1000 Oral 200 Output: Estimated Blood Loss 5 Other: # Voids 2 - Exam General appearance: The patient is alert, oriented, appears in no acute distress. HET: Head is normocephalic and atraumatic. Conjunctiva pink. Sclera anicteric. Neck: Supple without lymphadenopathy. Abdomen: Soft, surgical tenderness, nondistended. No guarding or rigidity. Extremities: Normal skin color and turgor. No pedal edema Skin: No rashes, no jaundice Neurological: No focal deficits. Alert and oriented. - Labs CBC & Chem 7: 05/17/21 10:40 05/17/21 10:40 Assessment and Plan (1) Crohn's disease Narrative/Plan: 21-year-old male known to Dr. Quesada for history of Crohn's colitis diagnosed at age 13. Presented to the emergency department with right lower quadrant pain that began 2 days ago which states was severe however has been improving over the last couple days. He did have some associated nausea with the abdominal pain. No fevers or chills. Patient gets remicade infusions, and has been well controlled. He denies any blood in his stool. No increase in diarrhea. no leukocytosis. CT of abdomen and pelvis shows slight prominence of the appendix with some minimal periappendiceal inflammatory changes. Findings can be compatible with early acute appendicitis. Clinical correlation and management is recommended. Some mild colitis at the hepatic flexure should be considered. Possible dealing with a mild Crohn's flare. Continue low dose IV steroids for now, likely discontinue tomorrow Current Visit: Yes Status: Acute Code(s): K50.90 - CROHN'S DISEASE, UNSPECIFIED, WITHOUT COMPLICATIONS SNOMED Code(s): 70977405 (2) Right lower quadrant abdominal pain Narrative/Plan: Gen. surgery on consult, plan for appendectomy today Current Visit: Yes Status: Acute Code(s): R10.31 - RIGHT LOWER QUADRANT PAIN SNOMED Code(s): 063155587 (3) Appendicitis Narrative/Plan: Patient is status postop day #1 for appendectomy Current Visit: Yes Status: Acute Code(s): K37 - UNSPECIFIED APPENDICITIS S NOMED Code(s): 02861180 Plan: 1. Continue symptomatic and supportive care 2. Diet per surgical services recommendation 3. Follow up outpatient with gastroenterology as previously scheduled Thank you for this consultation, the patient is cleared for discharge from gastroenterology. We will sign off at this time. Dr. Sonia Quesada I agree with the dictator's note, documented as a scribe by Rosemarie Coley.
--- NOTE | 2021-05-19 12:14 | P.PN ---
Subjective Progress Note Date: 05/19/21 Principal diagnosis: Acute appendicitis Patient says this pain is gradually improving. The right-sided pain that he came to the hospital with has resolved. He feels somewhat bloated. He is tolerating regular food however. He would like to go home. Objective - Vital Signs Vital signs: Vital Signs Temp 97.6 F 05/19/21 08:52 Pulse 61 05/19/21 08:52 Resp 16 05/19/21 08:52 BP 129/73 05/19/21 08:52 Pulse Ox 99 05/19/21 08:52 Intake & Output 05/18/21 05/19/21 05/19/21 18:59 06:59 18:59 Intake Total 1000 200 Output Total 5 Balance 995 200 Intake: IV 1000 Oral 200 Output: Estimated Blood Loss 5 Other: # Voids 2 - Exam Abdomen: Soft, nondistended, mild incisional tenderness, no rebound or guarding, incisions clean and dry - Labs CBC & Chem 7: 05/17/21 10:40 05/17/21 10:40 Assessment and Plan (1) Appendicitis Narrative/Plan: Patient doing well today. Continue diet as tolerated. Continue ambulation. May discharge. Prescription for [place] provided. Follow-up 1-2 weeks. Current Visit: Yes Status: Acute Code(s): K37 - UNSPECIFIED APPENDICITIS SNOMED Code(s): 76616195
[2021-05-19 12:36] VITALS: BP 169/95; PULSE 63; RESP 15; TEMP 98
--- NOTE | 2021-05-19 23:20 | P.DS ---
Providers Date of admission: 05/17/21 14:11 Attending physician: Adan Tidwell MD Consults: 05/17/21 15:41 Consult Physician Urgent Consulting Provider: Konstantin Ely Consult Reason/Comments: Crohn's flareup versus early appendicitis Do you want consulting provider notified?: Yes, Notify in am Consult Physician Urgent Consulting Provider: Cindy Quesada Consult Reason/Comments: Possible Crohn's flareup Do you want consulting provider notified?: Yes Primary care physician: Mariam Herrera Hospital Course: Final Diagnosis -Right lower quadrant abdominal pain -POD #1 laproscopic appendectomy -History of Chron's Disease, with exacerbation -History of epilepsy as a child Discharge Disposition Patient is cleared for discharge home s/p laproscopic appendectomy. Patient was incidentally found positive for COVID 19, however he has remained unsymptomatic this admission and is on room air. Hospital course This is a pleasant 21 year old male with past medical history significant for Chron's disease as well as history of epilepsy as a child. Patient does follow with GI in the office and is maintained on Remicade for his Chron's. Patient presented to the with complaints of right lower quadrant abdominal pain that has been ongoing since monday, patient had 1 episode of diarrhea that did not have blood in it. He also complained of significant nausea and abominal wall tenderness with palpation. CT abdomen completed in the EC was read as a very appendicular inflammation and early appendicitis cannot be ruled out. General surgery was consulted as well as GI. Patient was subsequently taken for a laproscopic appendectomy on 05/19/2021. He was tolerating a regular diet and passing gas, and was cleared by consultations for discharge home. Mom at the bedside was updated on plan. Labs were unremarkable, there was no white blood cell count. CRP is elevated at 2.2. Urinalysis was negative. Vitals are stable, patient has been afebrile. 05/19/2021 Patient evaluated this morning post op day #1 lap appendectomy. He is asking for a regular diet and to be discharge home. He has been ambulating, and urinating with out difficulty. Pain is controlled with medication. He is passing gas, has not had a bowel movement yet, there positive bowel sounds. He denies any chest pain, cough, or shortness of breath. Vital signs are stable. Patient is cleared today for discharge home. Please see medication reconciliation for a list of current medications. Thank you for allowing us to participate in the care of this patient. Patient Condition at Discharge: Stable Plan - Discharge Summary New Discharge Prescriptions: New HYDROcodone/APAP 5-325MG [[place] 5-325] 1 tab PO Q6HR PRN 3 Days #6 tab PRN Reason: Analgesia Acetaminophen Tab [Tylenol] 650 mg PO Q6HR PRN tab PRN Reason: Mild Pain Or Fever >= 100.5 Continue inFLIXimab [Remicade] 300 mg IVPB Q56D Discharge Medication List inFLIXimab [Remicade] 300 mg IVPB Q56D 03/02/18 [History] HYDROcodone/APAP 5-325MG [[place] 5-325] 1 tab PO Q6HR PRN 3 Days #6 tab 05/18/21 [Rx] Acetaminophen Tab [Tylenol] 650 mg PO Q6HR PRN tab 05/19/21 [Rx] Follow up Appointment(s)/Referral(s): Konstantin Ely MD [Medical Doctor] - 05/26/21 1:30 pm Mariam Herrera MD [Primary Care Provider] - 05/25/21 10:40 am Patient Instructions/Handouts: Hydrocodone/Acetaminophen (By mouth), Acute Abdominal Pain (DC), Laparoscopic Appendectomy (DC) Activity/Diet/Wound Care/Special Instructions: activity as tolerated Ok to shower diet as tolerated Discharge Disposition: HOME SELF-CARE
== END 2021-05-19 13:25 | disposition home or self-care (01) ==
LOC: EC 09:07 → 1SOBS 14:11 → 6NMEDSUR 19:37 → 1SOBS 19:45
PROVIDERS: ADMIT Internal Medicine; ATTEND Internal Medicine
DX: K35.80 Unspecified acute appendicitis (principal); U07.1 COVID-19; K50.10 Crohn's disease of large intestine without complications; G40.909 Epilepsy, unspecified, not intractable, without status epilepticus; K40.90 Unilateral inguinal hernia, without obstruction or gangrene, not specified as recurrent; Z79.899 Other long term (current) drug therapy; K66.0 Peritoneal adhesions (postprocedural) (postinfection); Z98.890 Other specified postprocedural states; Z83.79 Family history of other diseases of the digestive system; Z80.9 Family history of malignant neoplasm, unspecified
CPT/HCPCS: 96360; 99285; 36415; 88304; 80053; 85652; 82150; 83605; 83690; 85025; 86140; 81003; 87635; 74177; 44970; G0378 ×3; J2543 ×3; J2250; J2710; J2920 ×2; J2001; J3010; J1885 ×2; J0330; J2704; J1170; Q9967; J1644 ×2

== ENCOUNTER → 2022-12-14 | Outpatient (CLI) | payer OTHER ==
[2022-12-15 02:45] LABS: Hepatitis B Surface Antigen Nonreactive
== END | disposition home or self-care (01) ==
LOC: LABWHC1 14:18
PROVIDERS: ATTEND Nurse Practitioner Family
DX: K50.90 Crohn's disease, unspecified, without complications (principal)
CPT/HCPCS: 36415; 86704; 87340

== ENCOUNTER → 2022-12-27 | Outpatient (CLI) | payer OTHER | END | disposition home or self-care (01) | LOC: LABWHC1 14:45 | PROVIDERS: ATTEND Internal Medicine Gastroenterology | DX: K50.90 Crohn's disease, unspecified, without complications (principal) | CPT/HCPCS: 36415; 86480 ==

== ENCOUNTER 2023-01-11 12:54 | Emergency (ER) | payer BC, OTHER ==
[2023-01-11] MEDS ORDERED: ACETAMINOPHEN TAB 325 MG TAB PO STA (14:38)
--- NOTE | 2023-01-11 14:51 | ED ---
Head Injury HPI - General Chief complaint: Head Injury Stated complaint: head injury Time Seen by Provider: 01/11/23 14:22 Source: patient, RN notes reviewed Mode of arrival: ambulatory Limitations: no limitations - History of Present Illness Initial comments: This is a 22-year-old male who presents to the emergency department for a head injury. Patient states that last night he fell off of his scooter and fell backwards, hitting the back of his head. Denies any loss of consciousness. States that he has since had a headache, nausea, vomiting, and dizziness. He is also able to feel a bump behind his head. States that he is concerned about a concussion. Denies any fevers, chills, sore throat, cough, dyspnea, chest pain, palpitations , abdominal pain, diarrhea, or back pain. MD Complaint: head injury - Related Data Home Medications Medication Instructions Recorded Confirmed inFLIXimab [Remicade] 300 mg IVPB Q56D 03/02/18 05/17/21 Previous Rx's Medication Instructions Recorded HYDROcodone/APAP 5-325MG [[place] 1 tab PO Q6HR PRN 3 Days #6 tab 05/18/21 5-325] Acetaminophen Tab [Tylenol] 650 mg PO Q6HR PRN tab 05/19/21 Allergies/Adverse reactions: Allergies Allergy/AdvReac Type Severity Reaction Status Date / Time No Known Allergies Allergy Verified 01/11/23 13:03 Review of Systems ROS Statement: Those systems with pertinent positive or pertinent negative responses have been documented in the HPI. ROS Other: All systems not noted in ROS Statement are negative. Past Medical History Past Medical History: Seizure Disorder Additional Past Medical History / Comment(s): chrons, pt had epilepsy as child History of Any Multi-Drug Resistant Organisms: None Reported Past Surgical History: No Surgical Hx Reported, Appendectomy Additional Past Surgical History / Comment(s): colonoscopy, nasal, EGD with biopsy Past Psychological History: No Psychological Hx Reported Smoking Status: Current every day smoker Past Alcohol Use History: Occasional Past Drug Use History: None Reported - Past Family History Father Additional Family Medical History / Comment(s): colitis Brother(s) Family Medical History: Cancer General Exam Limitations: no limitations General appearance: alert, in no apparent distress Head exam: Present: atraumatic, normocephalic, normal inspection Eye exam: Present: normal appearance, PERRL, EOMI. Absent: scleral icterus, conjunctival injection, periorbital swelling Neck exam: Present: normal inspection, full ROM. Absent: tenderness, meningismus, lymphadenopathy Respiratory exam: Present: normal lung sounds bilaterally. Absent: respiratory distress, wheezes, rales, rhonchi, stridor Cardiovascular Exam: Present: regular rate, normal rhythm, normal heart sounds. Absent: systolic murmur, diastolic murmur, rubs, gallop, clicks Neurological exam: Present: alert, oriented X3, CN II-XII intact Psychiatric exam: Present: normal affect, normal mood Skin exam: Present: warm, dry, intact, normal color. Absent: rash Course Vital Signs 01/11/23 01/11/23 13:01 15:58 Temperature 98 F 98.0 F Pulse Rate 107 H 100 Respiratory 18 16 Rate Blood Pressure 146/76 130/78 O2 Sat by Pulse 99 98 Oximetry Medical Decision Making - Medical Decision Making This is a 22-year-old male who presents to the emergency department for a head injury. Was pt. sent in by a medical professional or institution? @ -No Did you speak to anyone other than the patient for history? @ -No Did you review nursing and triage notes? @ -Yes, and I agree, it is accurate with regards to the patient's symptoms. Were old charts reviewed? @ -No Differential Diagnosis? @ -Differential Diagnosis Head Injury: Contusion, hematoma, intracranial hemorrhage, skull fracture, whiplash, concussion, this is not meant to be an all-inclusive list. EKG interpreted by me (3pts min.)? @ -Not obtained X-rays interpreted by me (1pt min.)? @ -Not obtained CT interpreted by me (1pt min.)? @ -Computed tomography scan of the brain and C-spine obtained. My interpretation identifies no evidence of an acute intracranial hemorrhage or skull fracture. U/S interpreted by me (1pt. min.)? @ -Not obtained What testing was considered but not performed? (CT, X-rays, U/S, labs)? Why? @ -None What meds were considered but not given? Why? @ -None Did you discuss the management of the patient with other professionals? @ -No Did you reconcile home meds? @ -No Was smoking cessation discussed for >3mins.? @ -No Was critical care preformed (if so, how long)? @ -No Were there social determinants of health that impacted care today? How? (Homelessness, low income, unemployed, alcoholism, drug addiction, transportation, low edu. Level, literacy, decrease access to med. care, fpc, rehab)? @ -No Was there de-escalation of care discussed even if they declined? (Discuss DNR or withdrawal of care, Hospice)? @ -No What co-morbidities impacted this encounter? (DM, HTN, Smoking, COPD, CAD, Cancer, CVA, Hep., AIDS, mental health diagnosis, sleep apnea, morbid obesity)? @ -None Was patient admitted / discharged? @ -Discharged. Computed tomography scan of the brain and C-spine obtained. No acute findings were identified, however there did appear to be a chronic fracture at the tip of the C7 spinous process. Patient does report a history of injuries playing football when he was younger, but never had any imaging. He also notes a long-standing history of neck pain, and wonders if this may be the cause. He was given information for orthopedic follow-up to discuss if there are any treatment options and to see if this is in fact related to his ongoing neck pain. Otherwise advised to alternate with ibuprofen and Tylenol as needed for pain relief and to follow-up with his PCP for reevaluation. Undiagnosed new problem with uncertain prognosis? @ -None Drug Therapy requiring intensive monitoring for toxicity (Heparin, Nitro, Insulin, Cardizem)? @ -None Were any procedures done? @ -None Diagnosis/symptom? @ -Fall, closed head injury Acute, or Chronic, or Acute on Chronic? @ -Acute Uncomplicated (without systemic symptoms) or Complicated (systemic symptoms)? @ -Uncomplicated Side effects of treatment? @ -None Exacerbation, Progression, or Severe Exacerbation] @ -Not applicable Poses a threat to life or bodily function? @ -No Return precautions reviewed in depth, the patient is instructed to return to the emergency department with any new, worsening, or concerning symptoms. Patient verbalized understanding. This case was discussed in detail with the attending ED physician, Dr. Pacheco. Presentation, findings, and treatment plan discussed in detail as well. - Radiology Data Radiology results: report reviewed, image reviewed Disposition Clinical Impression: Closed head injury, Neck pain, Fall Disposition: HOME SELF-CARE Instructions (If sedation given, give patient instructions): Head Injury (ED) Additional Instructions: Return to the emergency department with any new, worsening, or concerning symptoms. Alternate with ibuprofen and Tylenol as needed for pain relief. Contact orthopedics as listed below. Let them know that you were seen in the emergency department for a fall and found to have an old C7 spinous process fracture and have had problems with ongoing neck pain. Follow up with your primary care provider in 1-2 days. Is patient prescribed a controlled substance at d/c from ED?: No Referrals: Mariam Herrera MD [Primary Care Provider] - 1-2 days Toby Epstein DO [Doctor of Osteopathic Medicine] - 1-2 days
--- NOTE | 2023-01-11 15:30 | CT ---
EXAMINATION TYPE: CT brain rekha wo con DATE OF EXAM: 01/11/2023 COMPARISON: None HISTORY: 22-year-old male with pain after Fall from scooter, hit back of head. Cannot confirm LOC. CT DLP: 1537 mGycm Automated exposure control for dose reduction was used. Technique: Examination of the head was done in axial plane without intravenous contrast. Coronal and sagittal reconstructions performed. CT of the cervical spine was obtained in axial plane without intravenous injection of contrast mater ial. Coronal and sagittal reformatted images were obtained from the axial views for evaluation of f ractures, spinal alignment and canal. FINDINGS: Head: There is no evidence of acute intracranial hemorrhage, acute ischemic changes, mass, mass-effect, or extra-axial fluid collection. There is no effacement of cerebral sulci or basal subarachnoid cister ns. There is no hydrocephalus. There is no midline shift. Jaquez-white matter distinction is preserv ed. Moderate mucosal thickening floors of the maxillary sinuses. Moderate mucosal thickening ethmoid air cells and left sphenoid sinus. Slight upper nasal septal deviation. Mastoid air cells well pneumatize d. Orbits and globes are intact. No calvarial fracture. Cervical spine: There is a fracture at the tip of the C7 spinous process. However, the fracture margin appears cortic ated suggesting an old injury. No acute fracture is seen. The alignment of the cervical spine is norm al on coronal and reformatted images. There is no cranial vertebral abnormality. Fracture of the cerv ical spine is not seen. Assessment of the spinal canal from C7-T1 and below is limited due to artifac t from the patient's shoulders. There is no evidence of focal disk herniation. There is no central sp inal canal stenosis. Sagittal and coronal reformatted images confirm above findings. COMBINED IMPRESSION: 1. No acute intracranial abnormality seen. 2. 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 Correlate with joanie ross's trauma history. No acute fracture or malalignment seen of the cervical spine. 3. Moderate chronic paranasal sinus disease.
[2023-01-11] MEDS ORDERED: ONDANSETRON 4 MG ODT STARTER PACK 2 TAB BTL PO STA (15:39)
[2023-01-11] MEDS ORDERED: IBUPROFEN 600 MG STARTER PACK 4 TAB BTL PO STA (15:39)
[2023-01-11 15:59] VITALS: BP 130/78; PULSE 100; RESP 16; TEMP 98
== END 2023-01-11 16:12 | disposition home or self-care (01) ==
LOC: EC 12:54
DX: S09.90XA Unspecified injury of head, initial encounter (principal); M54.2 Cervicalgia; F17.200 Nicotine dependence, unspecified, uncomplicated; W05.1XXA Fall from non-moving nonmotorized scooter, initial encounter
CPT/HCPCS: 72125; 70450; 99283; S0119

== ENCOUNTER 2024-08-09 12:23 | Day surgery (SDC) | payer BC, OTHER ==
[2024-08-07 15:54] VITALS: BMI 22.8
[2024-08-09 13:49] VITALS: TEMP 97.9
[2024-08-09] MEDS: IV FLUID CONTINUATION 1,000 ML IV ONE (13:53)
[2024-08-09] MEDS: LACTATED RINGERS 1,000 ML IV SCH (13:53)
[2024-08-09] MEDS ORDERED: PROPOFOL 10 MG/ML 20 ML VIAL IV ONE (14:17)
--- NOTE | 2024-08-09 14:37 | P.PCN ---
Date of Procedure: 08/09/24 Procedure(s) Performed: BRIEF HISTORY: Patient is a 24-year-old pleasant white meat scheduled for an elective colonoscopy as a part of screening for history of Crohn's ileitis diagnosed at age 12 in 2013 and presently on Stelara infusions every 8 weeks and remains in clinical remission. PROCEDURE PERFORMED: Colonoscopy with random biopsies. PREOPERATIVE DIAGNOSIS: History of Crohn's ileitis. IV sedation per Anesthesia. PROCEDURE: After informed consent was obtained, the patient, was brought into the endoscopy unit. IV sedation was administered by Anesthesia under continuous monitoring. Digital rectal examination was normal. Initially the Olympus CF-160 flexible video colonoscope was then inserted in the rectum, gradually advanced into the cecum without any difficulty. Careful examination was performed as the scope was gradually being withdrawn. Ileocecal valve and the appendiceal orifice were visualized and appeared normal. Prep was excellent. Terminal ileum was intubated and 20 cm visualized and appeared normal. Mucosa of the cecum, ascending colon, transverse colon, descending colon, sigmoid colon, and rectum appeared normal. Biopsies were done from the colon. Retroflexion was performed in the rectum and no lesions were seen. The patient tolerated the procedure well. IMPRESSION: Normal-appearing colon from rectum to cecum with no evidence of colitis or colorectal neoplasia Normal appearing terminal ileum. RECOMMENDATIONS: Findings of this examination were discussed with the patient as well as his family. He was advised to follow-up with the biopsy results. Recommend repeat colonoscopy in 5 years.. Continue with Stelara injections every 8 weeks.
[2024-08-09 14:42] VITALS: RESP 16
[2024-08-09 14:57] VITALS: BP 110/58; PULSE 60
== END 2024-08-09 15:37 | disposition home or self-care (01) ==
LOC: ORWHC2ENDO 12:23
PROVIDERS: ATTEND Internal Medicine Gastroenterology
DX: K50.00 Crohn's disease of small intestine without complications (principal)
CPT/HCPCS: 88305; 45380; J2704